=== PATIENT | male | born 1970 | race Caucasian/White ===

== ENCOUNTER 2018-11-04 09:28 | Emergency (ER) | payer OTHER ==
[2018-11-04 09:35] VITALS: BP 124/86
[2018-11-04] MEDS ORDERED: TDAP ADULT 0.5 ML INJ (BOOSTRIX) IM ONE (09:53)
--- NOTE | 2018-11-04 10:10 | EDPHY ---
General Time Seen by Provider: 11/04/18 09:53 Narrative: CHIEF COMPLAINT: Cut my thumb HISTORY OF PRESENT ILLNESS: Patient presents with complaints of cut to his left thumb. He states that he accidentally dropped a ceramic mode that cut his left thumb. This happened within the past hour. Moderately painful. Heavy bleeding noted. Some tingling at the tip of the thumb. He has no laceration elsewhere. Able to fully move the hand and thumb without difficulty but painfully so. No injury elsewhere. He is right-hand dominant. Not certain when his last Tdap was administered. No other associated complaints or modifying factors. TIME OF INJURY: Less than 1 hr prior to arrival TETANUS STATUS: Uncertain MEDICAL/SURGICAL/SOCIAL HISTORY: Uncomplicated. Right-hand dominant. REVIEW OF SYSTEMS: Ten systems reviewed and are negative unless otherwise noted in the HPI EXAMINATION: Vitals: Triage VS reviewed General Appearance: Alert, no distress Head: normocephalic, atraumatic Cardiovascular: Radial pulses are symmetric at 2+. There is brisk cap refill in all fingers left hand. Good signs of perfusion with no cyanosis or pallor of the left hand. Neurological: A&O, subjective paresthesia. 2 point sensory symmetric, order planner and interossei strength symmetric Skin: Warm and dry, no rash. 4 cm laceration to the palmar side of the left thumb, proximal phalanx extending into the webspace. No exposure of the adductors or thenar musculature. Nonpulsatile bleeding. No obvious foreign body. Extremities: Significant tenderness in the area of the left thumb laceration. Range of motion remains intact including interossei, flexion, extension, adduction, abduction and opposition DIFFERENTIAL DIAGNOSES: Including but not limited to laceration, laceration complication, laceration foreign body, laceration with deep tissue injury MDM: 9:50 a.m. Acute laceration to the palmar side of the left thumb extending from the proximal phalanx into the webspace. There is some subjective paresthesia distally. Two point sensation appears to be intact. Full range of motion of the thumb is intact. Nonpulsatile bleeding. No obvious foreign body, but I have ordered an x-ray to evaluate. I have administered local anesthesia. Proceed with irrigation closure. He has elected for a Tdap as he is not certain when his last 1 was administered. 10:50 a.m. X-ray negative for foreign body. During irrigation of the wound there was a small, surface capillary bleeder that was ligated. Wound was then continuously irrigated for several minutes. Wound was then closed with excellent approximation. Postprocedure there was no bleeding with good hemostasis. He was neuro intact distally with excellent range of motion of the thumb in hand. Wound will be dressed with Xeroform and compression dressing. We placed in a posterior limb foam splint to limit range of motion of the thumb as this does involve the web space. We discussed wound care. We discussed Keflex prophylaxis due to the depth the laceration. We discussed returning here in 7- 10 days for suture removal. He is comfortable this plan and discharged stable condition. PROCEDURE: Laceration repair Consent: Verbal Location: Left thumb Length of repair: 4 cm Complexity: Complex Layer involvement: Single Anesthesia: Local. 0.25% Marcaine plain. 7 mL Irrigation: Extensive Debridement: None Procedure description: Following good anesthesia, the wound was copiously irrigated. Wound bed was explored with a sterile glove, and there is no foreign body noted. No injury to the deep tissue structures. Wound borders were approximated well with good hemostasis. Tolerated well without complication. Suture/Staple material: 4-0 Prolene, 9 simple ruptured sutures Wound care: Routine as discussed Suture/Staple removal: 7-10 Days SUPERVISION: This patient was independently evaluated without direct involvement of or examination by the attending physician. ED Precautions: Worsening pain. Erythema, edema, cyanosis, pallor, paresthesia or anesthesia. - Diagnostics Imaging Results: Imaging Impressions Finger X-Ray 11/04/18 09:54 Impression: No radiopaque foreign material identified. Imaging: I viewed and interpreted images myself - History History Review: I reviewed the patient's medical records Smoking Status: Never smoked - Objective Vital Signs: Initial Vital Signs Temperature (C) 97.7 F 11/04/18 09:32 Heart Rate 90 11/04/18 09:32 Respiratory Rate 18 11/04/18 09:32 Blood Pressure 124/86 H 11/04/18 09:32 O2 Sat (%) 99 11/04/18 09:32 O2 Delivery Mode Room Air Allergies/Adverse Reactions: No Known Allergies Allergy (Verified 11/04/18 09:32) Home Medications: Medication Instructions Recorded Cephalexin [Keflex (*)] 500 mg PO QID #28 cap 11/04/18 Medications Given: Discontinued Medications Diphtheria/Tetanus/Acell Pertussis (Boostrix) 0.5 ml IM .ONCE ONE Stop: 11/04/18 09:54 Last Admin: 11/04/18 10:17 Dose: 0.5 ml Departure - Departure Disposition: Home, Routine, Self-Care Clinical Impression: Laceration of thumb, left, complicated Qualifiers: Encounter type: initial encounter Qualified Code(s): S61.012A - Laceration without foreign body of left thumb without damage to nail, initial encounter Condition: Good Instructions: Care For Your Stitches (DC), Laceration (ED) Additional Instructions: 1. Keep your splint in place for 5-7 days 2. Keep the wound covered while showering for the next 3 days 3. Daily wound care as discussed 4. Return here for suture removal in 7-10 days 5. Return here for signs of infection as discussed including warmth, redness, fever, drainage from the site 6. return here for increasing pain surrounding the laceration 7. Do not submerge the wound in any water, hot tub, swimming pool until sutures removed 8. Keflex antibiotic prophylaxis as prescribed to completion Referrals: Physician,Emergency Dept, MD [Medical Doctor] - As per Instructions (7-10 days for suture removal.) Prescriptions: Cephalexin [Keflex (*)] 500 mg PO QID #28 cap
== END 2018-11-04 11:17 | disposition home or self-care (01) ==
PROC: 0HQGXZZ Repair Left Hand Skin, External Approach (ICD-10-PCS; principal; 2018-11-04)
DX: S61.012A Laceration without foreign body of left thumb without damage to nail, initial encounter (principal); W26.8XXA Contact with other sharp object(s), not elsewhere classified, initial encounter; Y92.9 Unspecified place or not applicable; Y93.9 Activity, unspecified; Y99.9 Unspecified external cause status; Z23 Encounter for immunization
CPT/HCPCS: L3925